=== PATIENT | female | born 1985 | race Caucasian/White ===

== ENCOUNTER 2021-07-01 21:12 | Emergency (ER) | payer MEDICAID ==
[~2021-07-01] VITALS: Ht 157.5 cm; Wt 97.5 kg
[2021-07-01 21:15] VITALS: BP_SYST 137
[2021-07-01] MEDS ORDERED: CEPH250C PO ×4 (21:51→21:59)
[2021-07-01 22:02] VITALS: BP_SYST 137
== END 2021-07-01 22:02 | disposition home or self-care (01) ==
LOC: SED 21:12
DX: N39.0 Urinary tract infection, site not specified (principal); Z79.899 Other long term (current) drug therapy
CPT/HCPCS: 81002; 81025; 99283